=== PATIENT | female | born 1955 | race American Indian/Alaskan Native ===

== ENCOUNTER 2019-10-18 04:55 | Emergency (ER) | payer MEDICAID ==
[2019-10-18] MEDS ORDERED: ONDANSETRON 4 MG ODT TAB PO ONE (05:17)
[2019-10-18] MEDS ORDERED: traMADol 50 MG TAB PO ONE (05:17)
[2019-10-18] MEDS ORDERED: predniSONE 20 MG TAB PO ONE (05:17)
[2019-10-18] MEDS ORDERED: ACETAMINOPHEN 500 MG TAB PO ONE (05:18)
[2019-10-18 05:30] LABS: Bilirubin,Urine NEG (Negative); Blood,Urine SM (Negative); Color,Urine Straw (Yellow); Protein,Urine <15 mg/dL mg/dL (Negative); Urobilinogen,Urine < 2.0 mg/dL (<2.0)
--- NOTE | 2019-10-18 05:54 | Emergency Department Report ---
ED Back Pain/Injury HPI - General Chief Complaint: Medical Clearance Stated Complaint: CHRONIC PAIN Source: patient Limitations: No Limitations - History of Present Illness Initial Comments: Patient is a 63-year-old -[place] female with a history of hypertension and chronic osteoarthritis of multiple joints, chronic lumbar disc disease and chronic low back pain who presented to the ED with complaint of acute exacerbation of her chronic low back pain and diffuse joint pains for the last 1 week. Patient states that she has been evaluated at another hospital over a week ago and given tramadol for pain. Patient states that the medicine helped control her pain but subsequently her pain came back after she ran out of the medications for pain. Patient states that she has an appointment with her pain clinic in the next 5 days and wanted some medication to help until her next appointment at the pain clinic. Patient states that she usually takes tramadol for pain as well as muscle relaxants. Patient states that she has not been able to sleep the last 2 days because of severe pain. Patient denies dizziness, syncope, chest pain, shortness of breath, abdominal pain, dysuria, urinary fr equency and urgency, heavy lifting, fall, traumatic injury, numbness and tingling or weakness of upper and lower extremities bilaterally, fever, chills, nausea and vomiting. MD Complaint: back pain -: Gradual, week(s) (1) Similar Symptoms Previously: Yes (chronic osteoarthritis) Place: home Radiation: none Severity: severe Severity scale (0 -10): 7 Quality: sharp, aching Consistency: constant Improves With: none Worsens With: none Context: other (Chronic osteoarthritis and lumbar disc disease) Associated Symptoms: denies other symptoms. denies: confusion, weakness, chest pain, numbness, difficulty walking, cough, difficulty urinating, diaphoresis, incontinence, fever/chills, constipation, headaches, loss of appetite, malaise, nausea/vomiting, rash, seizure, shortness of breath, syncope Treatments Prior to Arrival: acetaminophen, other medications - Related Data Home Medications Medication Instructions Recorded Confirmed Last Taken traMADoL [Ultram] 50 mg PO Q6HR PRN 06/28/15 06/28/15 06/28/15 10:00 Previous Rx's Medication Instructions Recorded Last Taken Type predniSONE [Deltasone] 40 mg PO QDAY #10 tab 10/18/19 Unknown Rx traMADoL [Ultram 50 MG tab] 50 mg PO Q6HR PRN #12 tablet 10/18/19 Unknown Rx Allergies Allergy/AdvReac Type Severity Reaction Status Date / Time No Known Allergies Allergy Unverified 06/28/15 14:34 ED Review of Systems ROS: Stated complaint: CHRONIC PAIN Other details as noted in HPI Constitutional: denies: chills, fever Eyes: denies: eye pain, eye discharge, vision change ENT: denies: ear pain, throat pain Respiratory: denies: cough, shortness of breath, wheezing Cardiovascular: denies: chest pain, palpitations Endocrine: no symptoms reported Gastrointestinal: denies: abdominal pain, nausea, vomiting, diarrhea Genitourinary: denies: urgency, dysuria, discharge Musculoskeletal: back pain (lower ), arthralgia (polyarticular joint pains), myalgia. denies: joint swelling Skin: denies: rash, lesions Neurological: denies: headache, weakness, paresthesias Psychiatric: denies: anxiety, depression Hematological/Lymphatic: denies: easy bleeding, easy bruising ED Past Medical Hx - Past Medical History Hx Hypertension: Yes Hx GERD: Yes Hx Arthritis: Yes (OSTEOARTHRITIS) Hx Asthma: Yes Additional medical history: FIBROMYALGIA - Surgical History Additional Surgical History: SALIVA GLAND REMOVED. PARTIAL HYSTERECTOMY - Social History Smoking Status: Never Smoker Substance Use Type: None - Medications Home Medications: Home Medications Medication Instructions Recorded Confirmed Last Taken Type traMADoL [Ultram] 50 mg PO Q6HR PRN 06/28/15 06/28/15 06/28/15 10:00 History predniSONE [Deltasone] 40 mg PO QDAY #10 tab 10/18/19 Unknown Rx traMADoL [Ultram 50 MG tab] 50 mg PO Q6HR PRN #12 tablet 10/18/19 Unknown Rx ED Physical Exam - General Limitations: No Limitations General appearance: alert, in no apparent distress - Head Head exam: Present: atraumatic, normocephalic, normal inspection - Eye Eye exam: Present: normal appearance, PERRL, EOMI Pupils: Present: normal accommodation - ENT ENT exam: Present: normal exam, normal orophraynx, mucous membranes moist, TM's normal bilaterally, normal external ear exam - Neck Neck exam: Present: normal inspection, full ROM. Absent: tenderness, lymphadenopathy, thyromegaly - Respiratory Respiratory exam: Present: normal lung sounds bilaterally. Absent: respiratory distress, wheezes, rales, rhonchi, chest wall tenderness, accessory muscle use, decreased breath sounds, prolonged expiratory - Cardiovascular Cardiovascular Exam: Present: regular rate, normal rhythm, normal heart sounds. Absent: systolic murmur, diastolic murmur, rubs, gallop - GI/Abdominal GI/Abdominal exam: Present: soft, normal bowel sounds. Absent: tenderness, guarding, hyperactive bowel sounds, hypoactive bowel sounds - Extremities Exam Extremities exam: Present: normal inspection, full ROM, tenderness (Diffuse polyarticular joint tenderness), normal capillary refill. Absent: calf tenderness - Back Exam Back exam: Present: normal inspection, full ROM, tenderness (Palpable lumbosacral paraspinal musculoskeletal tenderness), muscle spasm, paraspinal tenderness. Absent: CVA tenderness (R), CVA tenderness (L), vertebral tenderness - Neurological Exam Neurological exam: Present: alert, oriented X3, CN II-XII intact, normal gait, reflexes normal - Psychiatric Psychiatric exam: Present: normal affect, normal mood - Skin Skin exam: Present: warm, dry, intact, normal color. Absent: rash ED Course Vital Signs 10/18/19 05:00 Temperature 98.6 F Pulse Rate 112 H Respiratory 16 Rate Blood Pressure 142/87 O2 Sat by Pulse 100 Oximetry ED Medical Decision Making - Medical Decision Making This is a 63-year-old -Armenian female with a history of hypertension and chronic osteoarthritis of multiple joints, chronic lumbar disc disease and chronic low back pain who presented to the ED with complaint of acute exacerbation of her chronic low back pain and diffuse joint pains for the last 1 week. Patient states that she has been evaluated at another hospital over a week ago and given tramadol for pain. Patient states that the medicine helped control her pain but subsequently her pain came back after she ran out of the medications for pain. Patient states that she has an appointment with her pain clinic in the next 5 days and wanted some medication to help until her next appointment at the pain clinic. Patient states that she usually takes tramadol for pain as well as muscle relaxants. Patient states that she has not been able to sleep the last 2 days because of severe pain. In the ED, patient is alert and oriented x3 and is not in distress but appears to be in pain and anxious. Patient was treated for pain in the ED. Urinalysis is unremarkable. Patient was given a refill on some of the medication that she takes and advised to follow-up with her pain clinic or primary care physician as previously scheduled. Patient was advised to return to the ED immediately if symptoms get worse. - Differential Diagnosis chronic osteoarthritis; chronic back pain; muscle spasm; Critical care attestation.: If time is entered above; I have spent that time in minutes in the direct care of this critically ill patient, excluding procedure time. ED Disposition Clinical Impression: Acute exacerbation of chronic low back pain, Chronic osteoarthritis, Spasm of muscle of lower back Disposition: TO HOME OR SELFCARE Is pt being admited?: No Does the pt Need Aspirin: No Condition: Stable Instructions: Osteoarthritis (ED), Chronic Back Pain (ED), Muscle Spasm (ED) Additional Instructions: Take medication with food, drink plenty of fluids and follow-up with your prima ry care physician and pain clinic as previously scheduled. Return to the ED immediately if symptoms get worse. Prescriptions: predniSONE [Deltasone] 40 mg PO QDAY #10 tab traMADoL [Ultram 50 MG tab] 50 mg PO Q6HR PRN #12 tablet PRN Reason: Pain Referrals: [facility] [Provider Group] - 3-5 Days Time of Disposition: 05:52 Print Language: UPPER SORBIAN
[2019-10-18 05:57] VITALS: BP 118/72
== END 2019-10-18 06:01 | disposition home or self-care (01) ==
LOC: ED 04:55
DX: M62.830 Muscle spasm of back (principal); M54.5 Low back pain; G89.29 Other chronic pain; I10 Essential (primary) hypertension; M19.90 Unspecified osteoarthritis, unspecified site; J45.909 Unspecified asthma, uncomplicated; K21.9 Gastro-esophageal reflux disease without esophagitis; Z90.710 Acquired absence of both cervix and uterus; Z79.899 Other long term (current) drug therapy; Z98.890 Other specified postprocedural states
CPT/HCPCS: 81001; 99283; J7512; Q0162